=== PATIENT | female | born 2000 | race African-American/Black ===

== ENCOUNTER 2019-09-24 10:58 | Emergency (ER) | payer MEDICAID ==
[~2019-09-24] VITALS: Ht 162.6 cm; Wt 90.0 kg
[2019-09-24 12:01] VITALS: BP 126/63
== END 2019-09-24 12:30 | disposition home or self-care (01) ==
LOC: ER 10:58
DX: H61.23 Impacted cerumen, bilateral (principal)
CPT/HCPCS: 99282

== ENCOUNTER 2019-09-29 11:04 | Emergency (ER) | payer MEDICAID ==
[~2019-09-29] VITALS: Ht 162.6 cm; Wt 87.0 kg
[2019-09-29 11:13] VITALS: BP 114/69
== END 2019-09-29 12:37 | disposition home or self-care (01) ==
LOC: ER 11:39
DX: H61.23 Impacted cerumen, bilateral (principal)
CPT/HCPCS: 99281

== ENCOUNTER 2020-06-28 18:04 | Emergency (ER) | payer MEDICAID ==
[~2020-06-28] VITALS: Ht 162.6 cm; Wt 93.0 kg
[2020-06-28] MEDS ORDERED: IBUPROFEN 600MG TABLET PO STA (18:13)
[2020-06-28] MEDS ORDERED: ACETAMINOPHEN 325MG TABLET PO STA (18:13)
[2020-06-28 23:01] LABS: CLARITY URINE CLEAR (CLEAR); COLOR URINE YELLOW (YELLOW); KETONES URINE NEGATIVE (NEGATIVE); LEUKOCYTE ESTERASE URINE NEGATIVE (NEGATIVE); NITRITE URINE NEGATIVE (NEGATIVE); OCCULT BLOOD URINE NEGATIVE (NEGATIVE); PH URINE 5.5 (4.5-8.0); PROTEIN URINE NEGATIVE (NEGATIVE); SPECIFIC GRAVITY URINE 1.041 (1.005-1.030); UROBILINOGEN URINE 0.2 E.U./dL (0.2-1.0)
[2020-06-28] MEDS ORDERED: IBUP-2028 MT (23:08)
[2020-06-28 23:31] VITALS: BP 114/75
== END 2020-06-28 23:33 | disposition home or self-care (01) ==
LOC: ER 18:04
DX: M54.5 Low back pain (principal); V43.52XA Car driver injured in collision with other type car in traffic accident, initial encounter; Y93.89 Activity, other specified; Y92.410 Unspecified street and highway as the place of occurrence of the external cause
CPT/HCPCS: 72100; 81003; 81025; 99283; Z7610

== ENCOUNTER 2020-12-17 07:40 | Emergency (ER) | payer MEDICAID ==
[~2020-12-17] VITALS: Ht 162.6 cm; Wt 89.0 kg
[~2020-12-17 07:40] MED LIST: IBUP-2028 MT
[2020-12-17] MEDS ORDERED: MORPHINE SULFATE 4 MG/ML CPJ (NOT FOR IM USE) IV ONE (08:30)
[2020-12-17] MEDS ORDERED: SODIUM CHLORIDE 0.9% 1,000 ML IV ONE (09:30)
[2020-12-17 09:33] LABS: BASOPHILS % 0.4 % (0.0-2.0); EOSINOPHILS % 0.8 % (0.0-5.0); HEMATOCRIT. 38.2 % (36.0-48.0); LYMPHOCYTES % 26.3 % (20.0-50.0); MEAN CORPUSCULAR HEMOGLOBIN 29.2 pg (28.0-32.0); MEAN CORPUSCULAR VOLUME 85.9 fL (81.0-99.0); MEAN PLATELET VOLUME 8.7 fl (7.4-10.4); MONOCYTES % 7.8 % (2.0-8.0); NEUTROPHILS % 64.7 % (40.0-76.0); PLATELET 315 x1000/uL (130-400); RED BLOOD CELL COUNT 4.45 mill/uL (4.2-5.4); RED CELL DISTRIBUTION WIDTH 13.1 % (11.6-14.6)
[2020-12-17 09:38] LABS: CHLORIDE 104 mEq/L (98-107)
[2020-12-17 09:44] LABS: PROTHROMBIN TIME 10.4 sec (9.6-11.0)
[2020-12-17 09:45] LABS: HCG SCREEN NEGATIVE
[2020-12-17] MEDS ORDERED: MORPHINE SULFATE 2 MG/ML CPJ (NOT FOR IM USE) IV NR (09:45)
[2020-12-17] MEDS ORDERED: TOPUD PO (10:33)
[2020-12-17 11:00] VITALS: BP 120/81
== END 2020-12-17 11:25 | disposition home or self-care (01) ==
LOC: ER 07:40
DX: R10.9 Unspecified abdominal pain (principal)
CPT/HCPCS: 36415; 76830; 76856; 80053; 83690; 84703; 85025; 85610; 99284; J7030; J2270

== ENCOUNTER 2022-04-11 07:55 | Emergency (ER) | payer MEDICAID ==
[~2022-04-11] VITALS: Ht 162.6 cm; Wt 91.0 kg
[~2022-04-11 07:55] MED LIST changes: +TOPUD PO
[2022-04-11 08:05] VITALS: BP 124/67
[2022-04-11] MEDS ORDERED: NEO/5DRO3 EACHEYE (08:56)
== END 2022-04-11 09:08 | disposition home or self-care (01) ==
LOC: ER 08:04
DX: H10.9 Unspecified conjunctivitis (principal)
CPT/HCPCS: 99281

== ENCOUNTER 2022-12-11 13:54 | Emergency (ER) | payer MEDICAID ==
[~2022-12-11] VITALS: Ht 162.6 cm; Wt 91.0 kg
[~2022-12-11 13:54] MED LIST changes: +NEO/5DRO3 EACHEYE
[2022-12-11 13:57] VITALS: BP 116/80; PULSE 88; RESP 19; TEMP 97.8; O2SAT 99
[2022-12-11] MEDS ORDERED: TETRACAINE 0.5% OPHTH DROPS 4ML LEFTEYE ONE (14:45)
[2022-12-11] MEDS ORDERED: FLUORESCEIN SODIUM 1MG/STRIP LEFTEYE ONE (14:45)
== END 2022-12-11 15:10 | disposition home or self-care (01) ==
LOC: ER 13:54
DX: H57.8A2 Foreign body sensation, left eye (principal)
CPT/HCPCS: 81025; 99283

== ENCOUNTER 2022-12-12 11:29 | Emergency (ER) | payer MEDICAID ==
[~2022-12-12] VITALS: Ht 165.1 cm; Wt 83.0 kg
[2022-12-12 11:37] VITALS: BP 131/89; TEMP 98.1; O2SAT 100
[2022-12-12 11:45] VITALS: PULSE 95; RESP 16
[2022-12-12] MEDS ORDERED: TETRACAINE 0.5% OPHTH DROPS 4ML EACHEYE ONE (13:15)
[2022-12-12] MEDS ORDERED: FLUORESCEIN SODIUM 1MG/STRIP EACHEYE ONE (13:15)
== END 2022-12-12 14:04 | disposition home or self-care (01) ==
LOC: ER 11:34
DX: H57.8A2 Foreign body sensation, left eye (principal)
CPT/HCPCS: 99283

== ENCOUNTER 2023-01-14 22:09 | Emergency (ER) | payer MEDICAID ==
[~2023-01-14] VITALS: Ht 162.6 cm; Wt 94.0 kg
[2023-01-14 22:18] VITALS: BP 130/76; O2SAT 97
[2023-01-15] MEDS ORDERED: IBUP-1523 MT (01:03)
[2023-01-15] MEDS ORDERED: AMOX-494 MT (01:03)
[2023-01-15] MEDS ORDERED: TOPUD MT (01:03)
[2023-01-15 01:24] VITALS: PULSE 90; RESP 20; TEMP 98.9
== END 2023-01-15 01:26 | disposition home or self-care (01) ==
LOC: ER 22:09
DX: R05.9 Cough, unspecified (principal); Z98.890 Other specified postprocedural states
CPT/HCPCS: 99283

== ENCOUNTER 2023-05-09 13:26 | Emergency (ER) | payer MEDICAID ==
[~2023-05-09] VITALS: Ht 162.6 cm; Wt 91.0 kg
[~2023-05-09 13:26] MED LIST changes: +AMOX-494 MT; +IBUP-1523 MT; +TOPUD MT
[2023-05-09 14:03] VITALS: BP 132/92; PULSE 97; RESP 18; TEMP 98.1; O2SAT 99
== END 2023-05-09 14:43 | disposition home or self-care (01) ==
LOC: ER 13:26
DX: R50.9 Fever, unspecified (principal); J06.9 Acute upper respiratory infection, unspecified; Z88.0 Allergy status to penicillin; Z68.34 Body mass index [BMI] 34.0-34.9, adult
CPT/HCPCS: 99281